=== PATIENT | female | born 1990 | race Caucasian/White ===

== ENCOUNTER 2017-07-02 23:35 | Emergency (ER) | payer OTHER ==
[~2017-07-02] VITALS: Ht 175.3 cm; Wt 127.0 kg
[~2017-07-02 23:35] MED LIST: ACID CONTROL150 MG PO; AMBIEN5 MG; ANAPROX DS550 MG PO; BENZONATATE100 MG PO; CELEXA40 MG PO; CIPRO500 MG PO; CLINDAMYCIN HC300 MG PO; CYCLOBENZAPRINE10 MG PO; ESCITALOPRAM OX10 MG PO; FLAGYL500 MG PO; FLOVENT HFA12 G1 INH; FLUOXETINE HCL20 MG; HYDROCHLOROTHIA25 MG PO; HYDROCODON-ACE1 EAC8 PO; IBUPROFEN800 MG PO; KEFLEX500 MG PO; LIDOCAINE HC28.35 GM TOP; MELATONIN3 MG PO; MINIPRESS1 MG PO; MOBIC7.5 MG PO; MONO-LINYAH1 EACH PO; MUPIROCIN22 GM TOP; NAPROXEN500 MG PO; NORCO 5-325 TA1 EACH PO; ONDANSETRON ODT4 MG PO; OXYCODONE-ACET1 EAC1 PO; PREDNISONE20 MG PO; SPRINTEC1 EACH PO; TRAZODONE HCL100 MG PO; TRAZODONE HCL50 MG PO; TYLENOL WITH C1 EACH PO; TYLENOL325 MG PO; ULTRAM50 MG PO; VENTOLIN HFA18 GM INH; XOPENEX HFA15 GM IH
[2017-07-03] MEDS ORDERED: CEPHALEXIN500 MG PO (01:48)
[2017-07-03] MEDS ORDERED: TRAMADOL HCL50 MG PO (01:48)
== END 2017-07-03 01:59 | disposition home or self-care (01) ==
LOC: ED 23:35
DX: L03.114 Cellulitis of left upper limb (principal); J45.909 Unspecified asthma, uncomplicated; F17.200 Nicotine dependence, unspecified, uncomplicated; Z88.8 Allergy status to other drugs, medicaments and biological substances; Z79.899 Other long term (current) drug therapy
CPT/HCPCS: 99283

== ENCOUNTER 2018-01-03 08:21 | Emergency (ER) | payer OTHER ==
[~2018-01-03] VITALS: Ht 175.3 cm; Wt 127.0 kg
[~2018-01-03 08:21] MED LIST changes: +CEPHALEXIN500 MG PO; +TRAMADOL HCL50 MG PO
== END 2018-01-03 09:03 | disposition home or self-care (01) ==
LOC: ED 08:21
DX: Z00.8 Encounter for other general examination (principal)

== ENCOUNTER 2018-03-09 22:58 | Emergency (ER) | payer OTHER ==
[~2018-03-09] VITALS: Ht 175.3 cm; Wt 150.6 kg
[2018-03-09] MEDS ORDERED: ARIPIPRAZOLE5 MG PO (23:18)
[2018-03-09] MEDS ORDERED: MINIPRESS5 MG PO (23:19)
[2018-03-09] MEDS ORDERED: TRAZODONE HCL50 MG PO (23:19)
[2018-03-09] MEDS ORDERED: ALL DAY ALLERGY10 M1 PO (23:20)
[2018-03-09] MEDS ORDERED: LAMOTRIGINE50 MG PO (23:22)
[2018-03-09] MEDS ORDERED: CHLORTHALIDONE25 MG PO (23:22)
[2018-03-09] MEDS ORDERED: OMEPRAZOLE20 MG PO (23:23)
[2018-03-09] MEDS ORDERED: FLOVENT DISKUS50 MCG INH (23:26)
[2018-03-09] MEDS ORDERED: AUGMENTIN 875-1 EACH PO (23:33)
[2018-03-09] MEDS ORDERED: ACETAMINOPHEN-1 EAC1 PO (23:52)
== END 2018-03-09 23:56 | disposition home or self-care (01) ==
LOC: ED 22:58
DX: H65.91 Unspecified nonsuppurative otitis media, right ear (principal); J45.909 Unspecified asthma, uncomplicated; E66.9 Obesity, unspecified; F17.200 Nicotine dependence, unspecified, uncomplicated; Z88.8 Allergy status to other drugs, medicaments and biological substances; Z79.899 Other long term (current) drug therapy
CPT/HCPCS: 99283

== ENCOUNTER 2021-03-29 17:24 | Emergency (ER) | payer OTHER ==
[~2021-03-29] VITALS: Ht 175.3 cm; Wt 168.3 kg
[~2021-03-29 17:24] MED LIST changes: +ACETAMINOPHEN-1 EAC1 PO; +ALL DAY ALLERGY10 M1 PO; +ARIPIPRAZOLE5 MG PO; +AUGMENTIN 875-1 EACH PO; +CHLORTHALIDONE25 MG PO; +FLOVENT DISKUS50 MCG INH; +LAMOTRIGINE50 MG PO; +MINIPRESS5 MG PO; +NORCO 7.5-3251 EACH PO; +OMEPRAZOLE20 MG PO
[2021-03-29] MEDS ORDERED: CEPHALEXIN500 M1 PO (18:52)
== END 2021-03-29 19:07 | disposition home or self-care (01) ==
LOC: ED 17:24
DX: L97.819 Non-pressure chronic ulcer of other part of right lower leg with unspecified severity (principal); L03.115 Cellulitis of right lower limb; J45.909 Unspecified asthma, uncomplicated; E66.9 Obesity, unspecified; F17.200 Nicotine dependence, unspecified, uncomplicated; Z88.8 Allergy status to other drugs, medicaments and biological substances
CPT/HCPCS: 99283

== ENCOUNTER 2021-12-10 19:37 | Emergency (ER) | payer OTHER ==
[~2021-12-10] VITALS: Ht 175.3 cm; Wt 153.8 kg
[~2021-12-10 19:37] MED LIST changes: +CEPHALEXIN500 M1 PO
[2021-12-10] MEDS ORDERED: AMITRIPTYLINE H50 MG PO (20:34)
[2021-12-10] MEDS ORDERED: LATUDA40 MG PO (20:34)
[2021-12-10] MEDS ORDERED: AMOXICILLIN500 MG PO (20:34)
== END 2021-12-10 21:46 | disposition home or self-care (01) ==
LOC: ED 19:37
DX: H57.89 Other specified disorders of eye and adnexa (principal); J45.909 Unspecified asthma, uncomplicated; E66.9 Obesity, unspecified; F17.200 Nicotine dependence, unspecified, uncomplicated; Z88.8 Allergy status to other drugs, medicaments and biological substances; Z79.899 Other long term (current) drug therapy
CPT/HCPCS: 99283

== ENCOUNTER 2021-12-23 21:24 | Emergency (ER) | payer OTHER ==
[~2021-12-23] VITALS: Ht 175.3 cm; Wt 149.7 kg
[~2021-12-23 21:24] MED LIST changes: +AMITRIPTYLINE H50 MG PO; +AMOXICILLIN500 MG PO; +LATUDA40 MG PO
--- OUTSIDE RECORDS SUMMARY | 2021-12-23 21:26 | XMS ---
PreManage Notification: ABDI AZAR Security Braze Operator Events 1 event(s) in the past 18 months Most recent security events: Elopement at [facility] 05/05/2021 14:45 Details: PATIENT LWBS. CRITERIA MET - [facility] - 2 Visits in 30 Days CARE PROVIDERS THAD Nurse Practitioner: Family Gardner GLENNA PHONE: [phone] Care Guidelines exist for the following facilities: [facility] ( 03/16/2016 ) Carolyne VISIT COUNT (12 MO.) [address] [place] [address] TOTAL 4 NOTE: Visits indicate total known visits. ED/UCC VISIT TRACKING (12 MO.) 12/23/2021 21:25 [facility] [place] TYPE: Emergency COMPLAINT: - LEFT SIDE PAIN 12/10/2021 19:37 [facility] [place] TYPE: Emergency COMPLAINT: - EYE PAIN/ INJURY DIAGNOSES: - Nicotine dependence, unspecified, uncomplicated - Other long chain beamer (current) drug therapy - Other specified disorders of eye and adnexa - Unspecified asthma, uncomplicated - Allergy status to other drugs, medicaments and biological substances - Other specified disorders of eye and adnexa - Obesity, unspecified 05/05/2021 14:45 [facility] [place] TYPE: Emergency COMPLAINT: - HEAVY BLEEDING VAGINAL 03/29/2021 17:26 [facility] [place] TYPE: Emergency COMPLAINT: - RT FOOT HAS SORE AND IS SWELLING DIAGNOSES: - Allergy status to other drugs, medicaments and biological substances - Non-pressure chronic ulcer of other part of right lower leg with unspecified severity - Nicotine dependence, unspecified, uncomplicated - Unspecified asthma, uncomplicated - Cellulitis of right lower limb - Obesity, unspecified INPATIENT VISIT TRACKING (12 MO.) No inpatient visits to display in this time frame [email or web address]
== END 2021-12-24 00:37 | disposition home or self-care (01) ==
LOC: ED 21:24
DX: S29.011A Strain of muscle and tendon of front wall of thorax, initial encounter (principal); J45.909 Unspecified asthma, uncomplicated; E66.9 Obesity, unspecified; F17.200 Nicotine dependence, unspecified, uncomplicated; Z88.8 Allergy status to other drugs, medicaments and biological substances; Z79.899 Other long term (current) drug therapy; X50.9XXA Other and unspecified overexertion or strenuous movements or postures, initial encounter
CPT/HCPCS: 36415; 71101; 84703; 85379; 99283-25

== ENCOUNTER 2022-08-05 22:13 | Emergency (ER) | payer OTHER ==
[~2022-08-05] VITALS: Ht 175.3 cm; Wt 149.7 kg
--- OUTSIDE RECORDS SUMMARY | 2022-08-05 22:20 | XMS ---
PreManage Notification: ABDI AZAR Security Wildlife Refuge Specialist Events 1 event(s) in the past 18 months Most recent security events: Elopement at [facility] 05/05/2021 14:45 Details: PATIENT LWBS. CRITERIA MET - [facility] - Has Care Guidelines CARE PROVIDERS PASCUAL JOAQUIN MD Otolaryngology Current PHONE: [phone] CLEO GRANADOS Nurse Practitioner: 12/25/2021-Current PHONE: [phone] Care Guidelines exist for the following facilities: [facility] ( 03/16/2016 ) Care History Medical/Surgical 12/25/2021 [facility] Patient was seen after clinic hours. No follow up scheduled at this time. 12/25/2021 [facility] - Patient is currently established with [facility]. If patient is seen in the ED during business hours. Please contact CHWs at [facility]. Care Recommendation: If this patient has had 5 or more Emergency Department visits in the last 12 months.\T\nbsp;Patient will require education on the scope and purpose of the ED as an acute care provider not a Primary Care Provider and should not be utilized for chronic conditions.\T\nbsp; These are guidelines and the provider should exercise clinical judgment when providing care. E.D. VISIT COUNT (12 MO.) 3 [facility]. TOTAL 3 NOTE: Visits indicate total known visits. ED/UCC VISIT TRACKING (12 MO.) 08/05/2022 22:[address] [facility] [place] TYPE: Emergency COMPLAINT: - ABDOMINAL PAIN 12/23/2021 21:[address] [facility] [place] TYPE: Emergency COMPLAINT: - LEFT SIDE PAIN DIAGNOSES: - Unspecified asthma, uncomplicated - Obesity, unspecified - Other bed bug exterminator (current) drug therapy - Strain of muscle and tendon of front wall of thorax, initial encounter - Allergy status to other drugs, medicaments and biological substances - Other and unspecified overexertion or strenuous movements or postures, initial encounter - Pleurodynia - Nicotine dependence, unspecified, uncomplicated 12/10/2021 19:[address] [facility] [place] TYPE: Emergency COMPLAINT: - EYE PAIN/ INJURY DIAGNOSES: - Allergy status to other drugs, medicaments and biological substances - Other specified disorders of eye and adnexa - Nicotine dependence, unspecified, uncomplicated - Other specified disorders of eye and adnexa - Unspecified asthma, uncomplicated - Other bed bug exterminator (current) drug therapy - Obesity, unspecified INPATIENT VISIT TRACKING (12 MO.) No inpatient visits to display in this time frame [id number]
[2022-08-05] MEDS ORDERED: HYDROXYZINE HCL25 MG PO (22:25)
[2022-08-05] MEDS ORDERED: OMEPRAZOLE20 MG PO (22:25)
[2022-08-05] MEDS ORDERED: ZIPRASIDONE HCL20 MG PO (22:25)
[2022-08-05] MEDS ORDERED: MIRTAZAPINE30 MG PO (22:26)
[2022-08-05] MEDS ORDERED: PYRIDIUM200 MG PO (23:43)
[2022-08-05] MEDS ORDERED: MACROBID 100 M100 MG PO (23:43)
== END 2022-08-06 00:13 | disposition home or self-care (01) ==
LOC: ED 22:13
DX: N39.0 Urinary tract infection, site not specified (principal); J45.909 Unspecified asthma, uncomplicated; E66.9 Obesity, unspecified; F17.200 Nicotine dependence, unspecified, uncomplicated; Z88.8 Allergy status to other drugs, medicaments and biological substances; Z79.899 Other long term (current) drug therapy
CPT/HCPCS: 36415; 80053; 81001; 84703; 85025; 87088; 96374; 99284-25; J2270

== ENCOUNTER 2022-09-08 12:14 | Emergency (ER) | payer OTHER ==
[~2022-09-08] VITALS: Ht 175.3 cm; Wt 163.4 kg
[~2022-09-08 12:14] MED LIST changes: +HYDROXYZINE HCL25 MG PO; +MACROBID 100 M100 MG PO; +MIRTAZAPINE30 MG PO; +PYRIDIUM200 MG PO; +ZIPRASIDONE HCL20 MG PO
--- OUTSIDE RECORDS SUMMARY | 2022-09-08 12:22 | XMS ---
PreManage Notification: ABDI AZAR Security Metal Hanging Helper Events 1 event(s) in the past 18 months Most recent security events: Elopement at [facility] 05/05/2021 14:45 Details: PATIENT LWBS. CRITERIA MET - [facility] - Has Care Guidelines CARE PROVIDERS PASCUAL JOAQUIN MD Otolaryngology Current PHONE: [phone] CLEO GRANADOS Nurse Practitioner: 12/25/2021-Current PHONE: [phone] Care Guidelines exist for the following facilities: [facility] ( 03/16/2016 ) Care History Medical/Surgical 12/25/2021 [facility] Patient was seen after clinic hours. No follow up scheduled at this time. 12/25/2021 [facility] - Patient is currently established with [facility]. If patient is seen in the ED during business hours. Please contact CHWs at [facility]. Care Recommendation: If this patient has [...] providing care. E.D. VISIT COUNT (12 MO.) 4 [facility]. TOTAL 4 NOTE: Visits indicate total known visits. ED/UCC VISIT TRACKING (12 MO.) 09/08/2022 12:14 [facility] [place] TYPE: Emergency COMPLAINT: - POSS PNEUMONINA 08/05/2022 22:13 [facility] [place] TYPE: Emergency COMPLAINT: - ABDOMINAL PAIN DIAGNOSES: - Obesity, unspecified - Urinary tract infection, site not specified - Unspecified asthma, uncomplicated - Other fdc (current) drug therapy - Lower abdominal pain, unspecified - Nicotine dependence, unspecified, uncomplicated - Allergy status to other drugs, medicaments and biological substances 12/23/2021 21:25 [facility] [place] TYPE: Emergency COMPLAINT: - LEFT SIDE PAIN DIAGNOSES: - Obesity, unspecified - Other fdc (current) drug therapy - Strain of muscle and tendon of front wall of thorax, initial encounter - Allergy status to other drugs, medicaments and biological substances - Other and unspecified overexertion or strenuous movements or postures, initial encounter - Pleurodynia - Nicotine dependence, unspecified, uncomplicated - Unspecified asthma, uncomplicated 12/10/2021 19:37 [facility] [place] TYPE: Emergency COMPLAINT: - EYE PAIN/ INJURY DIAGNOSES: - Other specified disorders of eye and adnexa - Nicotine dependence, unspecified, uncomplicated - Other specified disorders of eye and adnexa - Unspecified asthma, uncomplicated - Other tank terminal gauger (current) drug therapy - Obesity, unspecified - Allergy status to other drugs, medicaments and biological substances INPATIENT VISIT TRACKING (12 MO.) No inpatient visits to display in this time frame [email or web address]
[2022-09-08] MEDS ORDERED: VENTOLIN HFA18 GM INH ×2 (12:33→14:49)
[2022-09-08] MEDS ORDERED: DOXYCYCLINE HY100 MG PO (14:49)
== END 2022-09-08 15:08 | disposition home or self-care (01) ==
LOC: ED 12:14
DX: J45.901 Unspecified asthma with (acute) exacerbation (principal); G62.9 Polyneuropathy, unspecified; F17.200 Nicotine dependence, unspecified, uncomplicated; Z88.8 Allergy status to other drugs, medicaments and biological substances; Z79.899 Other long term (current) drug therapy
CPT/HCPCS: 71046; 94640; 94664; 99285-25

== ENCOUNTER 2022-10-11 15:15 | Emergency (ER) | payer OTHER ==
[~2022-10-11] VITALS: Ht 175.3 cm; Wt 160.6 kg
[~2022-10-11 15:15] MED LIST changes: +DOXYCYCLINE HY100 MG PO
--- OUTSIDE RECORDS SUMMARY | 2022-10-11 15:22 | XMS ---
PreManage Notification: ABDI AZAR Security Oxidation Operator Events 1 event(s) in the past 18 months Most recent security events: Elopement at [facility] 05/05/2021 14:45 Details: PATIENT LWBS. CRITERIA MET - [facility] - Has Care Guidelines CARE PROVIDERS PASCUAL JOAQUIN MD Otolaryngology Current PHONE: [phone] CLEO GRANADOS Nurse Practitioner: 12/25/2021-Current PHONE: [phone] Care Guidelines exist for the following facilities: [facility] ( 03/16/2016 ) Care History Medical/Surgical 12/25/2021 [facility] Patient was seen after clinic hours. No follow up scheduled at this time. 12/25/2021 [facility] - Patient is currently established with [facility]. If patient is seen in the ED during business hours. Please contact CHWs at [facility]. Care Recommendation: If this patient has [...] providing care. E.D. VISIT COUNT (12 MO.) 5 [facility]. TOTAL 5 NOTE: Visits indicate total known visits. ED/UCC VISIT TRACKING (12 MO.) 10/11/2022 15:16 [facility] [place]: Emergency COMPLAINT: - FLU SYMPTOMS 09/08/2022 12:14 [facility] [place]: Emergency COMPLAINT: - POSS PNEUMONINA DIAGNOSES: - Unspecified asthma with (acute) exacerbation - Other watcher automat long goods (current) drug therapy - Allergy status to other drugs, medicaments and biological substances - Nicotine dependence, unspecified, uncomplicated - Polyneuropathy, unspecified - Cough, unspecified 08/05/2022 22:13 [facility] [place] TYPE: Emergency COMPLAINT: - ABDOMINAL PAIN DIAGNOSES: - Obesity, unspecified - Urinary tract infection, site not specified - Unspecified asthma, uncomplicated - Other care home (current) drug therapy - Lower abdominal pain, unspecified - Nicotine dependence, unspecified, uncomplicated - Allergy status to other drugs, medicaments and biological substances 12/23/2021 21:25 [facility] [place]: Emergency COMPLAINT: - LEFT SIDE PAIN DIAGNOSES: - Obesity, unspecified - Other care home (current) drug therapy - Strain of muscle and tendon of front wall of thorax, initial encounter - Allergy status to other drugs, medicaments and biological substances - Other and unspecified overexertion or strenuous movements or postures, initial encounter - Pleurodynia - Nicotine dependence, unspecified, uncomplicated - Unspecified asthma, uncomplicated 12/10/2021 19:[address] [facility] [place] TYPE: Emergency COMPLAINT: - EYE PAIN/ INJURY DIAGNOSES: - Other specified disorders of eye and adnexa - Nicotine dependence, unspecified, uncomplicated - Other specified disorders of eye and adnexa - Unspecified asthma, uncomplicated - Other watcher automat long goods (current) drug therapy - Obesity, unspecified - Allergy status to other drugs, medicaments and biological substances INPATIENT VISIT TRACKING (12 MO.) No inpatient visits to display in this time frame [id number]
[2022-10-11] MEDS ORDERED: CYCLOBENZAPRINE10 MG PO (20:39)
[2022-10-11] MEDS ORDERED: BENZONATATE100 MG PO (20:39)
[2022-10-11] MEDS ORDERED: COMBIVENT RESPIM4 GM INH (20:39)
== END 2022-10-11 21:00 | disposition home or self-care (01) ==
LOC: ED 15:15
DX: J10.1 Influenza due to other identified influenza virus with other respiratory manifestations (principal); J45.909 Unspecified asthma, uncomplicated; F17.200 Nicotine dependence, unspecified, uncomplicated; Z88.8 Allergy status to other drugs, medicaments and biological substances; Z79.899 Other long term (current) drug therapy; Z20.822 Contact with and (suspected) exposure to COVID-19
CPT/HCPCS: 71045; 87502; 96372; 99283-25; C9803; J1885; U0003

== ENCOUNTER 2024-12-12 15:14 | Observation (INO) | payer OTHER ==
[~2024-12-12] VITALS: Ht 175.3 cm; Wt 161.7 kg
[~2024-12-12 15:14] MED LIST changes: +COMBIVENT RESPIM4 GM INH; +SEVOFLURANE 250 ML BTL INH ONE; +SUDOGEST120 MG PO
[2024-12-12] MEDS ORDERED: ondansetron HCL 4 MG/2 ML VIAL IV ONE (16:45)
[2024-12-12] MEDS ORDERED: METFORMIN HCL500 M2 PO (16:46)
[2024-12-12] MEDS ORDERED: VENTOLIN HFA18 GM (16:46)
[2024-12-12] MEDS ORDERED: PROTONIX20 MG (16:47)
[2024-12-12 16:48] LABS: BILIRUBIN, URINE NEGATIVE (negative); BLOOD/HGB, URINE SMALL (Negative); KETONE, URINE NEGATIVE (Negative); LEUK ESTERASE, URINE NEGATIVE (negative); NITRITE, URINE NEGATIVE (negative); PH, URINE 5.5 (5-7)
[2024-12-12 16:53] LABS: CRYSTALS, URINE NONE SEEN (0-1+); EPITHELIAL CELLS, URINE SQUAMOUS 4+ /lpf (0-1+); RED BLOOD CELLS, URINE 0-1 /hpf (0-5); WHITE BLOOD CELLS, URINE 0-1 /HPF (0-5)
[2024-12-12 16:54] LABS: BACTERIA, URINE NONE SEEN /hpf (negative); CASTS, URINE NONE SEEN \\lpf; COLLECTION TYPE, URINE CLEAN CATCH; REFLEX CULTURE, URINE No (No)
[2024-12-12 17:06] LABS: BASOPHILS 0.5 % (0-2); EOSINOPHILS 3.7 % (0-6); HEMATOCRIT 38.1 % (35.0-50.0); HEMOGLOBIN 13.1 g/dL (12.0-18.0); LYMPHOCYTES 27.2 % (24-44); MCH 31.6 (27-36); MCHC 34.4 g/dl (30-36); MCV 91.8 fl (81-99); NEUTROPHILS 62.6 % (39-80); PLATELET COUNT 220 K/uL (140-440); RBC 4.15 M/ul (4.3-5.7); RDW 13.3 (10.5-15.0)
[2024-12-12 17:21] LABS: ALBUMIN 3.2 g/dL (3.4-5.0); ALBUMIN/GLOBULIN RATIO 0.86 (1.1-2.4); ANION GAP 14.4 (7-21); BILIRUBIN, TOTAL 0.7 ng/dL (0.2-1.0); BUN/CREATININE RATIO 22.22 (6.0-28.6); CALCIUM 7.8 mg/dL (8.5-10.1); CREATININE, SERUM 0.63 mg/dL (0.55-1.02); POTASSIUM 4.4 mmol/L (3.5-5.1); PROTEIN, TOTAL 6.9 g/dL (6.4-8.2)
[2024-12-12] MEDS ORDERED: KETOROLAC TROMETHAMINE 30 MG/ML VIAL IV ONE (19:30)
[2024-12-12] MEDS ORDERED: FAMOTIDINE 20 MG/ 2 ML VIAL IV ONE (20:30)
[2024-12-12] MEDS ORDERED: CEFAZOLIN SODIUM 2 GM/20 ML SYR IV ONE (20:30)
[2024-12-12] MEDS ORDERED: LACTATED RINGER'S 1,000 ML IV PRN (20:30)
[2024-12-12] MEDS ORDERED: HYDROmorphone HCL 1 MG/ML SYR IV PRN ×2 (20:30→22:30)
[2024-12-12] MEDS ORDERED: metroNIDAZOLE/SODIUM CHLORIDE 500 MG/100 ML PIGGYBACK IV ONE (21:30)
[2024-12-12] MEDS ORDERED: FAMOTIDINE 20 MG/ 2 ML VIAL IV SCH (21:51)
[2024-12-12] MEDS ORDERED: metroNIDAZOLE/SODIUM CHLORIDE 500 MG/100 ML PIGGYBACK IV SCH (22:00)
[2024-12-12] MEDS ORDERED: KETOROLAC TROMETHAMINE 30 MG/ML VIAL IV PRN (22:00)
[2024-12-12] MEDS ORDERED: LACTATED RINGER'S 1,000 ML IV SCH (22:00)
[2024-12-12] MEDS ORDERED: CEFAZOLIN SODIUM 2 GM/20 ML SYR IV SCH (22:00)
[2024-12-12] MEDS ORDERED: ondansetron HCL 4 MG/2 ML VIAL IV PRN ×2 (22:00→22:30)
[2024-12-12] MEDS ORDERED: KETAMINE in NS 50 MG/5 ML SYR ONE (22:07)
[2024-12-12] MEDS ORDERED: fentaNYL citrate 100 MCG/2 ML VIAL ONE (22:07)
[2024-12-12] MEDS ORDERED: ondansetron HCL 4 MG/2 ML VIAL ONE (22:10)
[2024-12-12] MEDS ORDERED: DEXAMETHASONE SOD PHOS 4 MG/ML VIAL ONE ×2 (22:10→22:48)
[2024-12-12] MEDS ORDERED: dexmedeTOMIDine HCl 200 MCG/2 ML VIAL ONE (22:10)
[2024-12-12] MEDS ORDERED: propofoL 200 MG/20 ML VIAL ONE ×2 (22:10→23:32)
[2024-12-12] MEDS ORDERED: LIDOCAINE HCL 2% 5 ML SDV ONE (22:11)
[2024-12-12] MEDS ORDERED: ROCURONIUM BROMIDE 50 MG/5 ML SYR ONE ×2 (22:11→22:56)
[2024-12-12] MEDS ORDERED: ACETAMINOPHEN 1,000 MG/100 ML VIAL ONE (22:20)
[2024-12-12] MEDS ORDERED: droPERidol 5 MG/2 ML VIAL IV PRN (22:30)
[2024-12-12] MEDS ORDERED: fentaNYL citrate 50 MCG/ML SDV IV PRN (22:30)
[2024-12-12] MEDS ORDERED: IBLOOD GLUCOSE TEST STRIP 1 EA TEST VI PRN (22:30)
[2024-12-12] MEDS ORDERED: NALOXONE HCL 0.4 MG SYR IV PRN (22:30)
[2024-12-12] MEDS ORDERED: ALBUTEROL 1 PUFF INH ONE (22:34)
[2024-12-12] MEDS ORDERED: ePHEDrine sulfate 50 MG/ML AMP ONE (22:54)
[2024-12-12] MEDS ORDERED: ALBUTEROL/IPRATROPIUM 3 ML NEB ONE (23:15)
[2024-12-12] MEDS ORDERED: SUGAMMADEX SODIUM 200 MG/2 ML ML ONE (23:26)
[2024-12-12] MEDS ORDERED: ALBUTEROL/IPRATROPIUM 3 ML NEB INH ONE (23:30)
--- NOTE | 2024-12-12 23:56 | NUR ---
12/12/24 2356 Elise Stafford 2345- PT ARRIVES TO PACU, SEMI MONACO POSITION, NON REACTIVE TO STIMULUS. BREATHING EVEN AND NON LABORED, O2 AT 6L PER MASK. ABD SOFT, NON DISTENDED. STERI STRIPS IN PLACE TO 4 LAP SITES, CDI. LR INFUSING TO LAC IV. ALL MONITORS IN PLACE. 9922- PT TURNS HEAD TO VOICE AND OPENS EYES. DENIES PAIN AND NAUSEA. FOLLOWS COMMANDS TO DEEP BREATH WITH A HARSH COUGH. PT BACK TO RESTING.
[2024-12-13] VITALS (8 sets, daily range): BP systolic 112–128; BP diastolic 64–96
[2024-12-13] MEDS ORDERED: ALBUTEROL/IPRATROPIUM 3 ML NEB INH SCH
[2024-12-13] MEDS ORDERED: IBUPROFEN 600 MG TAB PO PRN (00:45)
[2024-12-13] MEDS ORDERED: ACETAMINOPHEN 500 MG TAB PO PRN (00:45)
[2024-12-13] MEDS ORDERED: OXYCODONE/APAP 7.5/325 TAB PO PRN (00:45)
--- NOTE | 2024-12-13 01:25 | NUR ---
PATIENT TO THE FLOOR BY CITRUS FRUIT COLORER. PATIENT ON 4L OXY MASK. IV FLUSHES WNL. IV FLUID INFUSING PER ORDER. PATIENT EDUCATED TO ROOM AND CALL LIGHT. PATIENT AND VERBILIZED UNDERSTANDING. BUS INSPECTOR REMAINS IN ROOM.
[2024-12-13] MEDS ORDERED: ALBUTEROL SULFATE 0.083% 3 ML VIAL INH PRN (01:45)
--- NOTE | 2024-12-13 01:55 | NUR ---
PATIENT RESTING IN BED. ASSESSMENT COMPLETE. LAP SITES x4 C/D/I WITH MINIMAL DRAINAGE. SCDs IN PLACE.
--- NOTE | 2024-12-13 02:27 | NUR ---
VITALS OBTAINED AND RECORDED.
--- NOTE | 2024-12-13 04:32 | NUR ---
PATIENT RESTING IN BED. VS OBTAINED AND RECORDED. ABD DRESSINGS C/D/I WITH MINIMAL DRY DRAINAGE. PATIENT HAS NO COMPLAINTS OF PAIN. NO FURTHER NEEDS NOTED. CALL LIGHT IN REACH.
[2024-12-13] MEDS ORDERED: HYDROCORTISONE SOD SUCCINATE 100 MG/2 ML VIAL IV SCH (06:00)
--- NOTE | 2024-12-13 06:34 | NUR ---
PATIENT RESTING IN BED. SCHEDULED MEDICATION ADMINISTERED. PATIENT REPORTS 7/10 ABD PAIN. PRN PAIN MEDICATION ADMINISTERED PER PATIENT REQUEST. PATIENT UP TO BATHROOM WITH MINIMAL SBA TO VOID. PATIENT BACK TO BED. NO FURTHER NEEDS. CALL LIGHT IN REACH.
--- NOTE | 2024-12-13 08:22 | NUR ---
ASSESSMENT COMPLETE - PT SITTING UP IN BED WATCHING TV. PAIN 7/10, IBP ADMINISTERED. LAP SITES HAVE SOME DRAINAGE, STERISTRIPS IN PLACE, NO BRUISING. IV SITE PATENT. PT TOELRATING FULL DIET WITHOUT NAUSEA. LUNGS CLEAR, NO SOB OR WHEEZING. PT REPORTS FLATUS EARLIER IN AM WHEN VOIDING URINE. CALL LIGHT IN REACH, IN CHAIR DENIES NEEDS.
--- NOTE | 2024-12-13 08:40 | NUR ---
PATIENT IN BED AT THIS TIME. INTERNAL MEDICINE PHYSICIAN CHARTED VITALS AND I&O'S. CALL LIGHT WITHIN REACH, NO FURTHER NEEDS AT THIS TIME.
--- NOTE | 2024-12-13 10:12 | NUR ---
PT SITTING UP IN BED, PAIN DECREASED TO 4/10 WITH IBP. PT DENIES NAUSEA AFTER BREAKFAST. FEELS READY TO DC HOME. NO CONCERNS OR NEEDS AT THIS TIME. CALL LIGHT IN REACH.
--- NOTE | 2024-12-13 11:00 | NUR ---
Spoke with Miah. She plans on dc to home today. Spouse will pick her up and stay at home with her. Pt complains of shortage of funds for food. We discussed the food chavez. They are over income for food stamps. She states she does not have transportation to the food chavez. We did discuss her spouse works 3 blocks from the [employer] [place]. She states he cannot molded goods spot picker a food box and she does not have anyone to drive her. She also works within 4 blocks of the [employer] gave her the phone number and encouraged her to call and see if she could work out a way to get a food box. Pt denies other needs and will dc to home.
[2024-12-13] MEDS ORDERED: IBUPROFEN600 MG PO (11:01)
[2024-12-13] MEDS ORDERED: OXYCODON-ACETA1 EAC2 PO (11:02)
[2024-12-13] MEDS ORDERED: ACETAMINOPHEN500 MG PO (11:02)
--- NOTE | 2024-12-13 11:23 | NUR ---
UR CLINICAL REVIEW: [facility]-MEET OBS/AMBULATORY CRITERIA FOR APPENDICITIS ODS EOCCO OBS 12/12/24 @ 2151 ORDER MATCHES REG NO AUTH REQUIRED FOR OBS VISIT PER GUIDELINES DISCHARGE TO HOME TODAY, ORDER WRITTEN.
--- NOTE | 2024-12-13 12:19 | HP ---
[facility] [address], [place] [address] Signed ADMISSION DATE: 12/12/2024 REASON FOR ADMISSION: Acute appendicitis, morbid obesity. HISTORY: This 34-year-old white woman has longstanding polycystic ovary syndrome for which she has pelvic pain. Her symptoms began yesterday, however, which were atypical for her and she presented to the emergency room where she was evaluated by Dr. Jordan with complaints of right lower abdominal pain and found to have marked tenderness in right lower quadrant. A CT scan was performed on the suspicion of possible appendicitis, which did in fact confirm a prominent thick-walled appendix measuring 9 mm in diameter with periappendiceal fat stranding, but no fecalith and findings consistent with acute appendicitis. She is admitted for further evaluation and care. PAST MEDICAL HISTORY: Notable for a laparoscopic cholecystectomy in the past, laparoscopic ovarian intervention for cystic ovaries. She does have morbid obesity with a BMI greater than 50. Underlying other problems include asthma, chronic pain problems, right ear problems, depression, chronic bronchitis, neuropathy, and prior history of left ovarian resection. She has had right ovarian intervention as well. SOCIAL HISTORY: She is . She has no children. She works at [employer] in the [place]. She lives in [place]. REVIEW OF SYSTEMS: She denies any shortness of breath or chest pain. The pain is dominantly in the right lower quadrant. PHYSICAL EXAMINATION: GENERAL: Pleasant white woman who is not systemically toxic. Pleasant white woman who is quite morbidly obese. VITAL SIGNS: Show a temperature of 98.3, a pulse of 73, blood pressure 136/74, O2 saturation on room air is 95%. HEAD AND NECK: shows a Mallampati class 4 airway. Trachea is midline. She has no hoarseness. CHEST: Clear. HEART: Regular without murmur. ABDOMEN: Morbidly obese. There is marked tenderness in the right lower quadrant. Rovsing sign is positive. Electronically Signed By: VICENTE CRAWLEY MD 12/13/24 1219 PATIENT NAME: ABDI AZAR HISTORY AND PHYSICAL DATE OF : [birth year] REPORT #: [id number] PHYSICIAN: VICENTE CRAWLEY MD PCP: QUINCY CID MD REPORT IS CONFIDENTIAL AND NOT TO BE RELEASED WITHOUT AUTHORIZATION [facility] [address], [place] [address] Signed EXTREMITIES: Show no clubbing, cyanosis, or edema. LABORATORY STUDIES: As noted. White count 9.0, hematocrit 38.1, platelets 220,000. Electrolytes normal. Creatinine 0.63. Chem profile essentially normal, glucose 118. Beta HCG negative. UA negative. ASSESSMENT: The patient has acute appendicitis with a thickened appendix on CT scan. Appendiceal stranding and findings highly consistent with acute appendicitis. I discussed with nonoperative and operative approaches to the management of this problem. I recommend more strongly an operative approach as it is a definitive cure to the problem. We are mindful of her significant obesity and its relationship to difficulty with surgery. The risk of bleeding, infection, need for an open procedure and need for other indicated procedures reviewed in detail. She understands and wished to proceed. MD SAMMY Alexander/REEMA /[id number] cc: MD Quincy Downs MD Copies: INDIA JORDAN MD, RUSSEL J MD ~ Electronically Signed By: VICENTE CRAWLEY MD 12/13/24 1219 PATIENT NAME: ABDI AZAR HISTORY AND PHYSICAL DATE OF : [birth year] REPORT #: [id number] PHYSICIAN: VICENTE CRAWLEY MD PCP: QUINCY CID MD REPORT IS CONFIDENTIAL AND NOT TO BE RELEASED WITHOUT AUTHORIZATION
--- NOTE | 2024-12-13 12:19 | OR ---
[facility] [address] [place], [place] [address] Signed DATE OF OPERATION: 12/12/2024 SURGEON: Vicente Crawley MD PREOPERATIVE DIAGNOSES: 1. Acute appendicitis without fecalith. 2. Morbid obesity, body mass index greater than 50. 3. Reactive airways. POSTOPERATIVE DIAGNOSES: 1. Acute appendicitis without fecalith. 2. Morbid obesity, body mass index greater than 50. 3. Reactive airways. PROCEDURE: Laparoscopic appendectomy, difficult related to obesity. ANESTHESIA: General endotracheal, Jarred Pompa, DEBURRING TECHNICIAN, and local 10 mL of 0.25% Marcaine with epinephrine. INDICATIONS: This 34-year-old white woman presented to the emergency room was evaluated by Dr. Katya Jean-Baptiste with complaints of right lower abdominal pain. Evaluation included a normal CBC, Chem profile, urinalysis, and a negative beta HCG, but a CT scan highly consistent with acute appendicitis. The appendix was dilated to 9 cm and significant periappendiceal inflammation was noted. She has been fluid resuscitated and now ready to undergo surgery to include appendectomy and other indicated procedures. The risk of bleeding, infection, need for other indicated procedures and so forth was reviewed with her, she understands and wished to proceed. FINDINGS: Initial intubation was met with poor ventilation and oxygenation requiring re-intubation. Ultimately, noting the patient to have either bronchospasm or laryngospasm to some degree. With bronchodilator therapy including albuterol and ultimately racemic epinephrine, good ventilation and oxygenation was accomplished. As regard to the appendix, it was quite markedly inflamed and thickened. There was no sign of perforation or abscess. There was surgical absence of the gallbladder. Liver was markedly fatty infiltrated. The operation was prolonged, complicated, and difficult Electronically Signed By: VICENTE CRAWLEY MD 12/13/24 1219 PATIENT NAME: ABDI AZAR OPERATIVE REPORT DATE OF : [birth year] REPORT #: [id number] PHYSICIAN: VICENTE CRAWLEY MD PCP: QUINCY CID MD REPORT IS CONFIDENTIAL AND NOT TO BE RELEASED WITHOUT AUTHORIZATION [facility] [address] [place], [place] [address] Signed on the basis of the aforementioned reasons. DESCRIPTION OF PROCEDURE: The patient was brought to the operating room and preoperative antibiotic Ancef and Flagyl had been given. Sequential compression device stockings had been applied. Intubation went without difficulty. However, she was not oxygenating well and it appeared that her CO2 curve showed initially good CO2 wave, but subsequently poor. On that basis, she was extubated. Bag ventilation with oxygen was relatively ineffective in providing good ventilation. Auscultation revealed diminished air passage. She was once again reintubated again with a glide scope and the airway secured and oxygenation was undertaken. She appeared to be "tight" on that basis albuterol nebulizer was insufflated through the endotracheal tube. This did improve her oxygenation reasonably promptly. During the course of operation, she underwent racemic epinephrine bronchodilator therapy too and she had no other issues during the course of operation or time of extubation. The abdomen was prepared with a chlorhexidine based solution and draped sterilely. An infraumbilical incision was made and using an open Lisa cannula technique, pneumoperitoneum was achieved to a level of 14 mmHg of carbon dioxide gas. Quite notable was her abdominal obesity, very thickened abdominal wall pannus and consider amount of intraabdominal fat as well. The laparoscoped was inserted. Examination did not show the appendix initially, but did show very fatty infiltrated liver in apparent surgical absence of the gallbladder. An epigastric port was placed, camera was replaced to that site. Single hand manipulation of the terminal ileum and cecum did identify the appendix, which was reasonably mobile, but quite markedly thickened and directed in the posterior inferior aspect. At the right lower quadrant, a 5 mm port was placed after the initial incision showed some bleeding, which was then controlled with the suture. Using two-hand manipulation, the small bowel loops were removed from the area in question in the right lower quadrant. The appendix was more fully visualized, elevated and a window was then created between the appendix and mesoappendix with electrocautery. An EndoGIA stapling device was used to transect the appendix at the base of the cecum. Subsequently, a vascular load was used to additionally transect the mesoappendix. The appendix was placed in an Endobag and extracted through the infraumbilical port site. Palpation showed to be quite markedly thickened, inflamed and essentially very hard. Irrigation was undertaken at the right lower quadrant region and the staple line. Hemostasis was assured on the staple line with a small amount of cautery with all due care taken to avoid injury to surrounding organs. Excess irrigation fluid was suctioned free. The trocars were removed under direct visualization showing no sign of bleeding. The infraumbilical fascial incision was reapproximated with interrupted 0 Vicryl suture and subsequently an 0 running PDS suture given her abdominal wall obesity. A 10 mL of 0.25% Marcaine was injected locally. Skin closed with interrupted 2-0 Vicryl. The Electronically Signed By: VICENTE CRAWLEY MD 12/13/24 1219 PATIENT NAME: LUIS MALE,ABDI GERONIMO OPERATIVE REPORT DATE OF : [birth year] REPORT #: [id number] PHYSICIAN: VICENTE CRAWLEY MD PCP: QUINCY CID MD REPORT IS CONFIDENTIAL AND NOT TO BE RELEASED WITHOUT AUTHORIZATION [facility] [address] [place] [address] Signed patient was extubated in a "deep" status suffering no laryngospasm, bronchospasm, or other problem by that point. She was taken to the recovery room in good condition. MD SAMMY Alexander/REEMA /[id number] cc: MD Katya Nguyễn MD Copies: QUINCY CID MD, KELLY MD ~ Electronically Signed By: VICENTE CRAWLEY MD 12/13/24 1219 PATIENT NAME: ABDI AZAR OPERATIVE REPORT DATE OF : [birth year] REPORT #: [id number] PHYSICIAN: VICENTE CRAWLEY MD PCP: QUINCY CID MD REPORT IS CONFIDENTIAL AND NOT TO BE RELEASED WITHOUT AUTHORIZATION
--- NOTE | 2024-12-13 13:00 | NUR ---
DISCHARGE INSTRUCTIONS PROVIDED TO PT - ALL QUESTIONS ANSWERED. STERISTRIP TO LOWER LAP SITE REINFORCED. VS STABLE. IV OUT WITH CATH INTACT. RX IN HUSBANDS HANDS.
[2024-12-13] MEDS ORDERED: FAMOTIDINE 20 MG TAB PO SCH (21:00)
--- NOTE | 2024-12-14 10:45 | PATH ---
[facility] [address], [place] [address] Signed SPECIMEN(S): A APPENDIX SPECIMEN SOURCE: A. APPENDIX CLINICAL HISTORY: Acute appy FINAL PATHOLOGIC DIAGNOSIS: Appendix, appendectomy: - Acute appendicitis with periappendicitis BRP MICROSCOPIC EXAMINATION: Histologic sections of all submitted blocks are examined by light microscopy. These findings, together with the gross examination, support the pathologic diagnosis. GROSS DESCRIPTION: The specimen, labeled and designated "Konstantin Azar, appendix per requisition," is received in formalin and consists of Specimen: Appendix with mesoappendix. Dimensions: 9.4 x 0.8 x 0.8 cm. Serosa: Mondragon-pink with serosal sloughing and areas of pinpoint hemorrhage. Defect: Not grossly identified. Inking: Staple line is inked Blue. Mucosa: Mondragon-brown and pinpoint. Fecalith: Not grossly identified. Additional: None. Residential Real Estate Agent sections are submitted in (A1). AA (under the direct supervision of a pathologist) The Gross Description was prepared using a voice recognition system. The report was reviewed for accuracy; however, sound-alike word errors, addition and/or deletions may occur. If there is any question about this report, please contact Client Services. ADDITIONAL NOTES: Immunohistochemical and/or in situ hybridization studies if performed in this case included appropriate positive controls that reacted as expected. This test was developed and its performance characteristics determined by [facility] It has not been cleared or PATIENT NAME: ABDI AZAR PATHOLOGY DATE OF : [birth year] REPORT #: [id number] PHYSICIAN: EMILIANO CELESTIN PCP: QUINCY CID MD REPORT IS CONFIDENTIAL AND NOT TO BE RELEASED WITHOUT AUTHORIZATION [address] [address] Signed approved by the U.S. Food and Drug Administration. The FDA has determined that such clearance or approval is not necessary. This test is used for clinical purposes. It should not be regarded as investigational or for research. [facility] is certified under the Clinical Laboratory Improvement Amendments of 1988 (CLIA) as qualified to perform high complexity clinical laboratory testing. PERFORMING LABORATORY: Technical component was performed by [facility] [address] [place] [address] (CLIA# [id number]). Professional interpretation was performed by [facility], [address] [place] [address] (CLIA#: [id number]). Diagnostician: Anton Tanner MD Pathologist Electronically Signed 12/14/2024 Copies: ~ PATIENT NAME: ABDI AZAR PATHOLOGY DATE OF : [birth year] REPORT #: [id number] PHYSICIAN: EMILIANO CELESTIN PCP: QUINCY CID MD REPORT IS CONFIDENTIAL AND NOT TO BE RELEASED WITHOUT AUTHORIZATION
== END 2024-12-13 13:12 | disposition home or self-care (01) ==
LOC: ED 15:14 → MS 21:53
PROVIDERS: Emergency Medicine; ADMIT Surgery; ATTEND Surgery
PROC: 0DTJ0ZZ Resection of Appendix, Open Approach (ICD-10-PCS; principal; 2024-12-12 22:22)
DX: K35.80 Unspecified acute appendicitis (principal); J45.909 Unspecified asthma, uncomplicated; G89.29 Other chronic pain; E28.2 Polycystic ovarian syndrome; E66.01 Morbid (severe) obesity due to excess calories; Z68.43 Body mass index [BMI] 50.0-59.9, adult; Z79.84 Long term (current) use of oral hypoglycemic drugs; Z88.8 Allergy status to other drugs, medicaments and biological substances
CPT/HCPCS: 00840; 36415; 74177; 80053; 81001; 83690; 84703; 85025; 94640; 94660; A9270; J0131; J0690; J1100; J1171; J1720; J1790; J1885; J2003; J2405; J2704; J3010; J3490; J7121

== ENCOUNTER 2025-04-24 13:33 | Observation (INO) | payer OTHER ==
[~2025-04-24] VITALS: Ht 175.3 cm; Wt 146.2 kg
[~2025-04-24 13:33] MED LIST changes: +ACETAMINOPHEN500 MG PO; +FLUOXETINE HCL40 MG PO; +IBUPROFEN600 MG PO; +METFORMIN HCL500 M2 PO; +OXYCODON-ACETA1 EAC2 PO; +PROTONIX20 MG; -SEVOFLURANE 250 ML BTL INH ONE; +VENTOLIN HFA18 GM
[2025-04-24] MEDS ORDERED: ALBUTEROL SULFATE 0.5% 2.5 MG/0.5 ML VIAL INH ONE ×2 (14:15→17:15)
[2025-04-24] MEDS ORDERED: methylPREDNISolone SOD SUCC 125 MG/2 ML VIAL IV ONE (14:15)
[2025-04-24] MEDS ORDERED: IPRATROPIUM BROMIDE 2.5 ML VIAL INH ONE ×2 (14:15)
[2025-04-24 14:27] LABS: BASOPHILS 0.3 % (0.1-1.2); EOSINOPHILS 1.2 % (0.7-5.8); HEMATOCRIT 44.7 % (34.1-44.9); HEMOGLOBIN 14.9 g/dL (11.2-15.7); LYMPHOCYTES 8.3 % (19.3-51.7); MCH 30.5 PG (25.6-32.2); MCHC 33.3 g/dL (32.2-35.5); MCV 91.4 fL (79.4-94.8); MONOCYTES 5.8 % (4.7-12.5); NEUTROPHILS 84.1 % (34.0-71.1); PLATELET COUNT 217 K/uL (182-369); RBC 4.89 M/uL (3.93-5.22)
[2025-04-24] MEDS ORDERED: ondansetron HCL 4 MG/2 ML VIAL IV ONE (14:30)
[2025-04-24 14:44] LABS: ALBUMIN/GLOBULIN RATIO 0.93 (1.1-2.4); ANION GAP 14.9 (7-21); BILIRUBIN, TOTAL 1.1 mg/dL (0.2-1.0); BUN/CREATININE RATIO 13.26 (6.0-28.6); CALCIUM 9.2 mg/dL (8.5-10.1); CREATININE, SERUM 0.98 mg/dL (0.55-1.02); POTASSIUM 3.9 mmol/L (3.5-5.1); PROTEIN, TOTAL 8.3 g/dL (6.4-8.2)
[2025-04-24] MEDS ORDERED: PANTOPRAZOLE SODIUM 40 MG TABEC PO SCH (18:58)
[2025-04-24] MEDS ORDERED: NICOTINE 14 MG/24 HR 1 EA TDSY TD SCH (18:59)
[2025-04-24] MEDS ORDERED: DEXTROSE 50% 50 ML SYR IV PRN ×2 (19:00)
[2025-04-24] MEDS ORDERED: DEXTROSE 5% 1,000 ML IV PRN (19:00)
[2025-04-24] MEDS ORDERED: IBLOOD GLUCOSE TEST STRIP 1 EA TEST XX PRN (19:00)
[2025-04-24] MEDS ORDERED: GLUCAGON,HUMAN RECOMBINANT 1 MG/ML VIAL SUB-Q PRN (19:00)
[2025-04-24] MEDS ORDERED: ondansetron HCL 4 MG/2 ML VIAL IV PRN (19:00)
[2025-04-24] MEDS ORDERED: ACETAMINOPHEN 325 MG TAB PO PRN (19:00)
[2025-04-24] MEDS ORDERED: NICOTINE POLACRILEX 2 MG GUM MM PRN (19:00)
[2025-04-24 19:02] LABS: INFLUENZA B NAA NEGATIVE (NEGATIVE); RESPIRATORY SYNCYTIAL VIR NAA NEGATIVE (NEGATIVE)
[2025-04-24] MEDS ORDERED: AZITHROMYCIN 250 MG TAB PO SCH (19:41)
[2025-04-24] MEDS ORDERED: CEFTRIAXONE SODIUM 2 GM in SODIUM CHLORIDE 0.9% 100 ML IV SCH (19:42)
[2025-04-24] MEDS ORDERED: ALBUTEROL/IPRATROPIUM 3 ML NEB INH SCH (20:00)
[2025-04-24 20:31] VITALS: BP 159/89
--- NOTE | 2025-04-24 20:45 | NUR ---
PT RECEIVED TO ROOM 109 VIA STRETCHER. PT ABLE TO AMBULATED TO HOSPITAL BED. RECEIVED REPORT FROM ER NURSE. PT AMBULATED TO BR IND. VOIDS WNL-PT REMOVED HAT IN TOILET SO UO NOT MEASURED. PT BECAME VERY SOB W/ AMBULATION, O2 SATS REMAINED 93%. CPOX IN PLACE. LS VERY DIM WITH FEW WHEEZES. SOB AND JEFFREY. MNPC. ROOM AIR. HRR BUT TACHY IN 120'S. BTA, REPORTS LBM TODAY. LFA SL. BASELINE NUMBNESS TO BILAT GREAT TOES. LFA SL WNL. SNACK PROVIDED PER PT REQUEST. BG ELEVATED-249, PT COVERED W/ SLIDING SCALE INSULIN. CALL LIGHT WITHIN REACH. SPOUSE AT BEDSIDE.
[2025-04-24] MEDS ORDERED: INSULIN LISPRO 100 UNIT/ML ML SUB-Q SCH (21:00)
[2025-04-24] MEDS ORDERED: MELATONIN 3 MG TAB PO PRN (21:00)
[2025-04-24] MEDS ORDERED: IBLOOD GLUCOSE TEST STRIP 1 EA TEST VI SCH (21:00)
[2025-04-24] MEDS ORDERED: FLUOXETINE HCL 20 MG CAP PO SCH (21:00)
[2025-04-24] MEDS ORDERED: ALBUTEROL SULFATE 0.083% 3 ML VIAL INH PRN (21:15)
--- NOTE | 2025-04-24 21:30 | NUR ---
PT UP USING BR IND. SPOUSE AT BEDSIDE.
[2025-04-24 22:07] VITALS: BP 159/89
--- NOTE | 2025-04-24 23:16 | NUR ---
PT REPORTS MIGRAINE 05/10, MEDICATED W/ PRN TYLENOL. ONGOING NAUSEA, MEDICATED W/ PRN ZOFRAN. HR 110'S, CPOX IN PLACE. O2 SATS 93%.
--- NOTE | 2025-04-25 01:14 | NUR ---
PT APPEARS ASLEEP ON RIGHT SIDE. CPOX IN PLACE, 02 SAT 92%.
--- NOTE | 2025-04-25 01:40 | NUR ---
DX: ASTHMA EXAC. CURRENT SMOKER. RESP PANEL NEG. ON RA. CPOX IN PLACE. ATB'S. NEBS. STEROIDS. LS DIM W/ WHEEZES. MNPC. ? D/C WEDS
[2025-04-25 01:52] VITALS: BP 133/60
[2025-04-25 01:54] VITALS: BP 133/60
--- NOTE | 2025-04-25 02:00 | NUR ---
PT REPORTS ONGOING HEADACHE. CAFFEINATED BEVERAGE PROVIDED.
--- NOTE | 2025-04-25 03:05 | NUR ---
AWAKE, REPORTS DIFFICULTY FALLING ASLEEP.
--- NOTE | 2025-04-25 04:17 | NUR ---
call light answered, pt reports sob. spo2 92-93% per cpox, rt [place] called to give prn breathing treatment. primary rn aware, call light in reach of pt.
--- NOTE | 2025-04-25 04:32 | NUR ---
PT CALLED FOR RT AND NEB TX. LS REMAIN DIM AND WHEEZY THROUGHOUT. REPORTS SOB. SITTING UPRIGHT IN BED. CPOX IN PLACE, O2 SAT 92%.
[2025-04-25 05:35] LABS: BASOPHILS 0.1 % (0.1-1.2); EOSINOPHILS 0 % (0.7-5.8); HEMATOCRIT 39.6 % (34.1-44.9); HEMOGLOBIN 13.5 g/dL (11.2-15.7); LYMPHOCYTES 6.3 % (19.3-51.7); MCHC 34.1 g/dL (32.2-35.5); MCV 90.8 fL (79.4-94.8); MONOCYTES 5.1 % (4.7-12.5); NEUTROPHILS 87.9 % (34.0-71.1); PLATELET COUNT 229 K/uL (182-369); RBC 4.36 M/uL (3.93-5.22)
[2025-04-25 05:51] LABS: ANION GAP 15.6 (7-21); BUN/CREATININE RATIO 14.73 (6.0-28.6); CALCIUM 9.1 mg/dL (8.5-10.1); CREATININE, SERUM 0.95 mg/dL (0.55-1.02); POTASSIUM 3.6 mmol/L (3.5-5.1)
[2025-04-25 06:27] VITALS: BP 180/77
[2025-04-25 06:48] VITALS: BP 180/77
--- NOTE | 2025-04-25 06:55 | NUR ---
PT SLEEPING SOUNDLY, SNORING LIGHTLY.
--- NOTE | 2025-04-25 07:13 | NUR ---
REPORT RECEIVED FROM NATALEE HOPE. PATIENT RESTING IN BED WITH EYES CLOSED, RR EVEN AND UNLABORED BUT AUDIBLE. CALL LIGHT AND PERSONAL BELONGINGS IN REACH.
--- NOTE | 2025-04-25 07:21 | NUR ---
UR CLINICAL REVIEW: MCG-PER MCG REVIEW MEEST OBS FOR ASTHMA WITH DYSPNEA POST ED TREATMENT ODS [facility] OBS 04/24/25 @ 1334 ORDER MATCHES REG NO AUTH REQUIRED PER [facility] GUIDELINES DISCHARGE TO HOME ANTICIPATED TODAY 04/26/25
[2025-04-25] MEDS ORDERED: LABETALOL HCL 20 MG/4 ML VIAL IV PRN (08:15)
--- NOTE | 2025-04-25 08:23 | NUR ---
ALERT AND ORIENTED, SITTING ON EDGE OF BED. LIVES WITH HER IN APARTMENT, 1 STEP TO GET INSIDE. NO DME, STATES SHE DOES NEED A NEBULIZER. PATIENT DOES NOT DRIVE, SPOUSE OR FRIENDS AND OTHER FAMILY PROVIDE TRANSPORT. STATES MONEY IS TIGHT, HER WORK HOURS WERE DECREASED AND SHE HAS DIFFICULTY OBTAINING FOOD AT TIMES. DISCUSSED FOOD PANTRIES. THEY DO GET SNAP BENEFITS $140/MONTH. INFORMED THEM OF [employer]. NO OTHER KNOWN CM NEEDS AT THIS TIME. PLAN TO DC TO HOME WITH SPOUSE WHEN MEDICALLY READY.
[2025-04-25] MEDS ORDERED: predniSONE 20 MG TAB PO SCH ×2 (09:00→21:00)
--- NOTE | 2025-04-25 09:05 | NUR ---
MEDICATION ADMINISTERED, SEE MAR. ASSESSMENT COMPLETE. PATIENT IS SITTING UP IN BED CONVERSING WITH VISITOR. PATIENT LUNG SOUNDS HAVE WHEEZING THROUGHOUT, EXPIRATORY AND INSPIRATORY. PATIENT IS ON ROOM AIR, CURRENTLY DENIES SHORTNESS OF BREATH AT REST. PATIENT VERBALIZING THAT SHE WOULD LIKE TO GO HOME LONG SHE GETS A NEBULIZER MACHINE. PATIENT REPORTS NAUSEA AFTER EATING BREAKFAST, ANTI-EMETIC ADMINISTERED. PATIENT NO OTHER COMPLAINTS, CALL LIGHT AND PERSONAL BELONGINGS IN REACH.
[2025-04-25 09:41] VITALS: BP 122/66
--- NOTE | 2025-04-25 09:42 | NUR ---
PT IN BED SITTING UP, AWAKE AND ALERT. CALL LIGHT WITHIN REACH. GOT PT FRESH ICE WATER. VISITOR IN ROOM.
--- NOTE | 2025-04-25 10:53 | NUR ---
MD GIVES VERBAL ORDER FOR PREDNISONE 40MG CHANGE FROM ONCE A DAY TO TWICE A DAY, WELLBUTRIN XL 150MG ONCE A DAY, AND TO DISCONTINUE NICOTINE PATCH AND GUM. ALL ORDERS PLACED.
[2025-04-25 10:54] VITALS: BP 122/66
[2025-04-25] MEDS ORDERED: buPROPion HCL XL 150 MG TAB.XL.24H PO SCH (11:00)
[2025-04-25] MEDS ORDERED: PANTOPRAZOLE SO40 MG PO (11:29)
[2025-04-25] MEDS ORDERED: PREDNISONE20 MG PO ×2 (11:43→12:58)
[2025-04-25] MEDS ORDERED: PREDNISONE10 MG PO (11:45)
[2025-04-25] MEDS ORDERED: BREYNA 80-4.510.3 GM INH (11:46)
[2025-04-25] MEDS ORDERED: WELLBUTRIN XL150 MG PO ×2 (11:47→11:48)
[2025-04-25] MEDS ORDERED: LEVOFLOXACIN750 MG PO (11:49)
[2025-04-25] MEDS ORDERED: HYDROXYZINE HCL25 MG PO (11:49)
[2025-04-25] MEDS ORDERED: IPRAT-ALBUT 0.5-3 ML INH (11:52)
[2025-04-25] MEDS ORDERED: PHARMACY RENAL DOSE ADJUSTMENT 1 DOSE MISC PO SCH (12:00)
--- NOTE | 2025-04-25 12:22 | NUR ---
ORDER, FACESHEET, H&P AND DC SUMMARY FAXED TO [facility] IN [place] FOR NEBULIZER.
[2025-04-25] MEDS ORDERED: WELLBUTRIN SR150 MG PO (12:56)
--- NOTE | 2025-04-25 19:09 | EKG ---
[facility] [address] [facility] [place], [place] [address] Signed Sinus tachycardia Otherwise normal ECG When compared with ECG of 01-NOV-2023 17:14, No significant change was found Confirmed by Aleksander Zhao DO ([id number]) on 04/25/2025 7:08:44 PM Electronically Signed By: ALEKSANDER ZHOA DO 04/25/25 1909 PATIENT NAME: LUIS PARSONS,ABDI GERONIMO Electrocardiogram DATE OF : [birth year] PHYSICIAN: ALEKSANDER ZHAO DO REPORT #: [id number] REPORT IS CONFIDENTIAL AND NOT TO BE RELEASED WITHOUT AUTHORIZATION
[2025-04-25] MEDS ORDERED: BUDESONIDE 0.5 MG/2 ML VIAL INH SCH (20:00)
== END 2025-04-25 13:13 | disposition home or self-care (01) ==
LOC: ED 13:33 → MS 13:34
PROVIDERS: Emergency Medicine; ADMIT Student in an Organized Health Care Education/Training Program; ATTEND Student in an Organized Health Care Education/Training Program
DX: J45.901 Unspecified asthma with (acute) exacerbation (principal); J44.1 Chronic obstructive pulmonary disease with (acute) exacerbation; F17.210 Nicotine dependence, cigarettes, uncomplicated; F32.9 Major depressive disorder, single episode, unspecified; K21.9 Gastro-esophageal reflux disease without esophagitis; E11.9 Type 2 diabetes mellitus without complications
CPT/HCPCS: 36415; 71045; 71260; 80048; 80053; 83735; 83880; 84703; 85025; 87502; 94640; 94664; 94667; 94760; 94799; 96376; 99285-25; A9270; G0378; J0696; J1815; J2405; J2919; J7512; Q9967; U0002

== ENCOUNTER 2025-09-15 13:42 | Emergency (ER) | payer OTHER ==
[~2025-09-15] VITALS: Ht 175.3 cm; Wt 144.2 kg
[~2025-09-15 13:42] MED LIST changes: +BREYNA 80-4.510.3 GM INH; +IBUPROFEN200 M1 PO; +IPRAT-ALBUT 0.5-3 ML INH; +LEVOFLOXACIN750 MG PO; +PANTOPRAZOLE SO40 MG PO; +PREDNISONE10 MG PO; +WELLBUTRIN SR150 MG PO; +WELLBUTRIN XL150 MG PO
[2025-09-15] MEDS ORDERED: HYDROXYZINE HCL25 MG PO (16:28)
[2025-09-15] MEDS ORDERED: PREDNISONE20 MG PO (16:28)
[2025-09-15] MEDS ORDERED: predniSONE 20 MG TAB PO ONE (16:30)
[2025-09-15 16:51] VITALS: BP 138/88
== END 2025-09-15 16:50 | disposition home or self-care (01) ==
LOC: ED 13:42
DX: L50.9 Urticaria, unspecified (principal); J45.909 Unspecified asthma, uncomplicated; E11.42 Type 2 diabetes mellitus with diabetic polyneuropathy; F17.200 Nicotine dependence, unspecified, uncomplicated; Z79.84 Long term (current) use of oral hypoglycemic drugs; Z79.899 Other long term (current) drug therapy; Z88.8 Allergy status to other drugs, medicaments and biological substances
CPT/HCPCS: 99283; J7512

== ENCOUNTER 2025-09-26 21:21 | Emergency (ER) | payer OTHER ==
[~2025-09-26] VITALS: Ht 175.3 cm; Wt 143.4 kg
[2025-09-26] MEDS ORDERED: SUCRALFATE1 GM PO (21:32)
[2025-09-26] MEDS ORDERED: DEXAMETHASONE SOD PHOS 10 MG/ML VIAL IV ONE (22:00)
[2025-09-26] MEDS ORDERED: FAMOTIDINE 20 MG/ 2 ML VIAL IV ONE (22:00)
[2025-09-26] MEDS ORDERED: CETIRIZINE HCL 10 MG TAB PO ONE (22:00)
[2025-09-26] MEDS ORDERED: ZYRTEC10 MG PO (22:37)
[2025-09-26] MEDS ORDERED: methylPREDNISolone 4 MG HOME.PACK PO ONE (22:45)
[2025-09-26 23:06] VITALS: BP 168/82
== END 2025-09-26 23:07 | disposition home or self-care (01) ==
LOC: ED 21:21
DX: L29.9 Pruritus, unspecified (principal); T42.8X5A Adverse effect of antiparkinsonism drugs and other central muscle-tone depressants, initial encounter; J45.909 Unspecified asthma, uncomplicated; F17.200 Nicotine dependence, unspecified, uncomplicated; Z79.899 Other long term (current) drug therapy; Z88.8 Allergy status to other drugs, medicaments and biological substances
CPT/HCPCS: 96374; 96375; 99283-25; J1100; J1200